=== PATIENT | male | born 1980 | race Caucasian/White ===

== ENCOUNTER 2017-08-21 13:34 | Emergency (ER) | payer OTHER ==
[2017-08-21 13:49] VITALS: BP 144/88
[2017-08-21] MEDS ORDERED: AMOXICILLIN/CLAVULANATE POT 875/125 MG TAB PO ONE (14:55)
--- NOTE | 2017-08-21 14:55 | EDPHY ---
H & P Time Seen by Provider: 08/21/17 14:33 HPI/ROS: CHIEF COMPLAINT: Dog bite left forearm HISTORY OF PRESENT ILLNESS: His dog bit him at 12:30 p.m. today, by his own dog , vaccines up-to-date, no weakness or numbness in the hand, no foreign body sensation. REVIEW OF SYSTEMS: No other injuries PAST MEDICAL HISTORY: Head injury, tetanus up-to-date Social history: Nonsmoker General Appearance: Alert and conversant, cooperative. 2 mm puncture on the volar side of the left mid forearm. 3 cm stellate laceration on the dorsum of the left mid forearm. Normal motor sensory and capillary refill. Specifically normal FDP and FDS and all fingers and normal flexion and extension of the wrist. No foreign body on examination of the wound. Emergency Department course/MDM: With dog bite primary closure is in my judgment on acceptably high risk of infection. Anesthetized with 6 mL 0.5% bupivacaine with epinephrine and standard irrigation performed with dressing. He will return in 3 days for evaluation of possible delayed primary closure. Patient understands and consents to this course of treatment. Does not appear to have foreign body or damage of nerve or blood vessel or tendon. Smoking Status: Never smoked Constitutional: Initial Vital Signs Temperature (C) 36.8 C 08/21/17 13:45 Heart Rate 89 08/21/17 13:45 Respiratory Rate 16 08/21/17 13:45 Blood Pressure 144/88 H 08/21/17 13:45 O2 Sat (%) 96 08/21/17 13:45 O2 Delivery Mode Room Air Allergies/Adverse Reactions: wasp stings Allergy (Uncoded 08/21/17 13:49) Home Medications: Medication Instructions Recorded Amoxicillin/Clavulanate Pot 875 mg PO BID #20 tab 08/21/17 [Augmentin 875 mg tab] MDM/Departure - MDM Medications Given: Discontinued Medications Amoxicillin/Clavulanate Potassium (Augmentin 875mg) 875 mg PO EDNOW ONE PRN Reason: Protocol Stop: 08/21/17 14:56 Last Admin: 08/21/17 15:07 Dose: 875 mg - Depart Disposition: Home, Routine, Self-Care Clinical Impression: Dog bite of left forearm without complication Qualifiers: Encounter type: initial encounter Qualified Code(s): S51.852A - Open bite of left forearm, initial encounter Condition: Good Instructions: Amoxicillin/Clavulanate Potassium (By mouth), Animal Bite (ED) Additional Instructions: Return in 72 hr for evaluation for possible delayed primary closure of your arm wound. Prescriptions: Amoxicillin/Clavulanate Pot [Augmentin 875 mg tab] 875 mg PO BID #20 tab Referrals: NONE *PRIMARY CARE P,. [Primary Care Provider] - As per Instructions
== END 2017-08-21 15:08 | disposition home or self-care (01) ==
DX: S51.852A Open bite of left forearm, initial encounter (principal); W54.0XXA Bitten by dog, initial encounter

== ENCOUNTER → 2018-03-21 | Outpatient (CLI) | payer OTHER | LOC: FIMAGING 17:45 | PROVIDERS: ATTEND Family Medicine | DX: G93.89 Other specified disorders of brain (principal); R51 Headache; R29.898 Other symptoms and signs involving the musculoskeletal system; Z87.820 Personal history of traumatic brain injury ==